=== PATIENT | male | born 1990 | race Caucasian/White ===

== ENCOUNTER 2020-11-10 03:30 | Emergency (ER) | payer OTHER ==
[~2020-11-10] VITALS: Ht 182.9 cm; Wt 90.7 kg
[2020-11-10 04:36] LABS: HEMATOCRIT 45.7 % (42.0-52.0); HEMOGLOBIN 15.6 gm/dL (14.0-18.0); MCH 31.1 pg (26.0-34.0); MCV 91.4 fL (80.0-100.0); MPV 9.3 fl. (7.2-11.1); RDW-CV 13.8 % (10.5-14.5); WBC 10.8 thou/uL (4.0-11.0)
[2020-11-10 05:01] LABS: URINE BILIRUBIN NEGATIVE (Negative); URINE BLOOD NEGATIVE (Negative); URINE CLARITY CLEAR; URINE COLOR YELLOW; URINE GLUCOSE-RANDOM NEGATIVE (Negative); URINE KETONES NEGATIVE (Negative); URINE LEUKOCYTES NEGATIVE (Negative); URINE NITRITE NEGATIVE (Negative); URINE PROTEIN NEGATIVE (Negative); URINE SPECIFIC GRAVITY >= 1.030 (1.005-1.030); URINE UROBILINOGEN 0.2 E.U./dl (0.2-1.0)
[2020-11-10 05:02] LABS: CALCIUM 8.7 mg/dL (8.5-10.1); CREATININE 0.7 mg/dL (0.6-1.3); POTASSIUM 4.1 mmol/L (3.5-5.1)
[2020-11-10 05:04] LABS: AMP/METHAMP POSITIVE (Negative); BARBITURATES Negative (Negative); BENZODIAZEPINES Negative (Negative); COCAINE Negative (Negative); METHADONE Negative (Negative); OPIATES Negative (Negative); PCP Negative (Negative); THC Negative (Negative)
[2020-11-10 05:07] LABS: ALBUMIN 3.8 g/dL (3.4-5.0); TOTAL BILIRUBIN 0.3 mg/dL (<0.1-1.0); TOTAL PROTEIN 7.5 g/dL (6.4-8.2)
[2020-11-10 05:26] LABS: ALCOHOL 75 mg/dL (<10); SALICYLATE < 2.8 mg/dL (2.8-20.0)
[2020-11-10 05:29] LABS: ACETAMINOPHEN < 2 ug/mL (10-30)
[2020-11-10 09:44] VITALS: BP 139/90
== END 2020-11-10 09:45 | disposition home or self-care (01) ==
LOC: M.ERS 03:30
PROVIDERS: Personal Emergency Response Attendant
DX: R45.851 Suicidal ideations (principal); Z20.822 Contact with and (suspected) exposure to COVID-19; F15.129 Other stimulant abuse with intoxication, unspecified; F17.210 Nicotine dependence, cigarettes, uncomplicated; Z86.19 Personal history of other infectious and parasitic diseases